=== PATIENT | male | born 1990 ===

== ENCOUNTER 2017-12-04 01:16 | Inpatient (IN) | payer MEDICAID ==
--- NOTE | 2017-12-04 01:58 | ED PDOC ---
HPI: Psych/Substance Abuse Time Seen by Provider: 12/04/17 01:18 Chief Complaint (Nursing): Psychiatric Evaluation Chief Complaint (Provider): Requesting psychiatric evaluation History Per: Patient Associated Symptoms: Depression. denies: Suicidal Thoughts, Suicidal Plan Additional Complaint(s): 27yo male, diagnosed with schizophrenia and bipolar disorder as an adolescent, recently discharged from [facility] ago, presents to ED requesting psychiatric evaluation. Patient states he has been noncompliant with his medications for the past 3 months and reports feeling depressed. He denies any suicidal or homicidal ideation, auditory or visual hallucinations. He has no other complaints. PMD: None provided Past Medical History Reviewed: Historical Data, Nursing Documentation, Vital Signs Vital Signs: Last Vital Signs Temp 98.0 F 12/04/17 01:28 Pulse 65 12/04/17 01:28 Resp 18 12/04/17 01:28 BP 131/62 12/04/17 01:28 Pulse Ox 99 12/04/17 01:28 - Medical History PMH: Bipolar Disorder, Schizophrenia - Surgical History Surgical History: No Surg Hx - Family History Family History: States: No Known Family Hx - Social History Current smoker - smoking cessation education provided: Yes Drugs: Cannabis - Home Medications Home Medications: Ambulatory Orders Medication Instructions Recorded Unobtainable 12/04/17 - Allergies Allergies/Adverse Reactions: Allergies Allergy/AdvReac Type Severity Reaction Status Date / Time fluphenazine [From Prolixin] Allergy dyskinesia Verified 12/04/17 01:28 haloperidol [From Haldol] Allergy SHORTNESS Verified 12/04/17 01:28 OF BREATH Review of Systems ROS Statement: Except As Marked, All Systems Reviewed And Found Negative Psych: Positive for: Depression. Negative for: Psychosis, Suicidal ideation Physical Exam - Reviewed Nursing Documentation Reviewed: Yes Vital Signs Reviewed: Yes - Physical Exam Appears: Positive for: Non-toxic, No Acute Distress Head Exam: Positive for: ATRAUMATIC, NORMAL INSPECTION, NORMOCEPHALIC Skin: Positive for: Normal Color Eye Exam: Positive for: Normal appearance Neck: Positive for: Normal, Supple Cardiovascular/Chest: Positive for: Regular Rate, Rhythm Respiratory: Positive for: Normal Breath Sounds. Negative for: Respiratory Distress Gastrointestinal/Abdominal: Positive for: Normal Exam, Soft. Negative for: Tenderness Back: Positive for: Normal Inspection Extremity: Positive for: Normal ROM. Negative for: Deformity Neurologic/Psych: Positive for: Alert, Oriented, Mood/Affect (flat) - Laboratory Results Result Diagrams: 12/04/17 02:55 12/04/17 02:55 - ECG ECG: Positive for: Interpreted By Me, Viewed By Me ECG Rhythm: Positive for: Sinus Bradycardia Rate: 58 (0238) O2 Sat by Pulse Oximetry: 99 (RA) Pulse Ox Interpretation: Normal Medical Decision Making Medical Decision Making: Impression: 27yo male with depression in setting of history of schizophrenia, and bipolar disorder Plan: -- Cogentin 1mg PO -- Risperdal 1mg PO -- Crisis evaluation Time: 213 Patient seen and evaluated by crisis team and patient to be admitted under Dr. Bowling for depression. Labs ordered. Time: 0406 Labs reviewed and show no clinically significant abnormalities. CXR as read by provider indicates no acute diseases. Patient is medically stable for a psychiatric admission Scribe Attestation: Documented by Paulette Blankenship, acting as a scribe for Sharad Almonte MD. Provider Scribe Attestation: All medical record entries made by the Scribe were at my direction and personally dictated by me. I have reviewed the chart and agree that the record accurately reflects my personal performance of the history, physical exam, medical decision making, and the department course for this patient. I have also personally directed, reviewed, and agree with the discharge instructions and disposition. Disposition - Clinical Impression Clinical Impression: Bipolar disorder - Disposition Disposition Time: 02:14 Condition: STABLE - Pt Status Changed To: Hospital Disposition Of: Inpatient - Admit Certification Admit to Inpatient:: After my assessment, the patient will require hospitalization for at least two midnights. This is because of the severity of symptoms shown, intensity of services needed, and/or the medical risk in this patient being treated as an outpatient. - POA Present On Arrival: None
[2017-12-04 03:02] LABS: BASO # 0.1 K/uL (0.0-0.2); BASO % 0.6 % (0.0-2.0); EOS # 0.1 K/uL (0.0-0.7); EOS % 1.4 % (0.0-4.0); HEMOGLOBIN 14.4 g/dL (12.0-18.0); LYMPH % 18.8 % (20.0-40.0); MEAN CELL VOLUME 87.3 fl (80.0-94.0); MEAN CORPUSCULAR HEMOGLOBIN 30.4 pg (27.0-31.0); MEAN CORPUSCULAR HGB CONC 34.8 g/dL (33.0-37.0); MEAN PLATELET VOLUME 9.3 fl (7.2-11.7); MONO # 1.1 K/uL (0.0-0.8); MONO % 9.9 % (0.0-10.0); NEUT # 7.4 K/uL (1.8-7.0); NEUT % 69.3 % (50.0-75.0); RBC 4.74 Mil/uL (4.40-5.90); RED CELL DISTRIBUTION WIDTH 13.3 % (11.5-14.5); SQUAMOUS EPITHIAL < 1 /hpf (0-5); URINE BILIRUBIN NEGATIVE (NEGATIVE); URINE BLOOD NEGATIVE (NEGATIVE); URINE CLARITY SLIGHTY-CLOUDY (Clear); URINE COLOR YELLOW (YELLOW); URINE GLUCOSE (UA) NEG (Normal); URINE LEUKOCYTE ESTERASE NEG Leu/uL (Negative); URINE PROTEIN NEGATIVE (NEGATIVE); WHITE BLOOD COUNT 10.7 K/uL (4.8-10.8)
[2017-12-04 03:19] LABS: BARBITURATES, UR NEGATIVE (NEGATIVE); BENZODIAZEPINES, UR NEGATIVE (NEGATIVE); OPIATES, UR NEGATIVE (NEGATIVE); PHENCYCLIDINE, UR NEGATIVE (NEGATIVE)
[2017-12-04 04:05] LABS: ALB/GLOB RATIO 1.4 (1.0-2.1); ALBUMIN 3.9 g/dL (3.5-5.0); ALT/SGPT 26 U/L (21-72); AST/SGOT 25 U/L (17-59); BLOOD UREA NITROGEN 15 mg/dl (9-20); CALCIUM 8.9 mg/dL (8.4-10.2); GFR AFRICAN-AMERICAN > 60; GFR NON-AFRICAN AMERICAN > 60
[2017-12-04 04:08] VITALS: O2SAT 99
[2017-12-04] MEDS ORDERED: Alum-Mag Hydrox-Simethicone Susp (30 mL) PO PRN (04:36)
[2017-12-04] MEDS ORDERED: Magnesium Hydroxide Susp 30 ml UD PO PRN (04:36)
[2017-12-04] MEDS ORDERED: DiphenhydrAMINE 50 mg/ml Inj IM PRN (04:36)
--- NOTE | 2017-12-04 04:44 | PCM.BM ---
<Gwyn Cavanaugh - Last Filed: 12/04/17 04:42> Treatment Plan Problems - Problems identified on initial assessmt Hopelessness/Helplessness Date Initiated: 12/04/17 Time Initiated: 04:42 Assessment reference: NA Status: Active Treatment assets and liabiliti Patient Assests: cooperative, self-reliant, ADL independent, physically healthy , negotiates basic needs, cognitively intact Patient Liabilities: live alone, financial problems, poor support system, substance abuse - Milieu Protocol Maintain good personal hygiene: every shift Encourage regular showers, every shift Remind patient to perform daily oral care, every shift Assist patient to perform ADL's Maintain personal safety: daily Educate patient to report safety concerns to staff, daily Monitor environment for contraband/sharps Medication safety: Monitor for expected outcome, potential side effects: daily, Assess barriers to learning: daily, Assess readiness for medication education: daily <Beverly Olvera - Last Filed: 12/04/17 09:43> - Diagnosis (1) Bipolar disorder Status: Chronic Interventions: Medication management, Individual and group therapy, Psychoeducation 12/04/17 09:44 <Kavin Barry - Last Filed: 12/05/17 12:06> Family Contact Family involvement: Famliy/SO not involved Family contact: Patient declines to allow family contact at present Family contact name: Pt denied. - Goals for Treatment Patient goals for treatment: Pt reported he would like time to rest and get his strength up. Pt was very concerned with medications making his drousy. Discharge/Continuing Care - Education Needs Education Needs: Patient Medication, Patient Diagnosis/Disease Process, Patient Coping Skills, Patient Community resources, Patient Aftercare Safety Plan - Discharge Discharge Criteria: Tolerates medication w/o severe side effects, Free of Suicidal thoughts, Free of paranoid thoughts, Free of agitation, Normal sleep pattern, Reduction of target symptoms Discharge to:: Halfway - Additional Comments 12/05/17 12:03 Pt reported he came to the hospital for "personal issues." Pt's psychiatric hx was discussed at length and pt reported he was hospitalized numerous times as a child and adult at [facility] for several months. Pt was fixated on his medications not making him drowsy, so Dr. Olvera recommended only giving pt his Risperdal at nighttime. - Treatment Team Participation Was Patient/Family/SO present at Treatment Team Meeting: Yes
--- NOTE | 2017-12-04 09:18 | RAD ---
HISTORY: admit COMPARISON: No prior. FINDINGS: LUNGS: No active pulmonary disease. PLEURA: No significant pleural effusion identified, no pneumothorax apparent. CARDIOVASCULAR: Normal. OSSEOUS STRUCTURES: No significant abnormalities. VISUALIZED UPPER ABDOMEN: Normal. OTHER FINDINGS: None. IMPRESSION: No active disease.
--- NOTE | 2017-12-04 09:44 | PCM.PSYCH ---
Initial Psychiatric Evaluation - Initial Psychiatric Evaluation Type of Admission: Voluntary Legal Status: Capacity Chief Complaint (in patient's own words): "I'm depressed." Patient's Reaction to Hospitalization: HPI: 27 yo male w/ self reported history of "bipolar disorder" vs "schizophrenia " BIB EMS after he went to the police department reporting that he was depressed and suicidal. Patient at this time is minimally cooperative with interview and unwilling to give details of his psychiatric history. He reports that he feels acutely depressed, with low energy, poor sleep/appetite. He denies anxiety, manic, racing thoughts, AH/VH/current SI/HI. He reports that the depression has been worsened by the recent of a cousin a few weeks ago. PPHx: Reports >50 psychiatric hospitalizations. Reports h/o suicide attempt at age 18 (attempted to jump off roof). Tx w/ Depakote, Cogentin and Risperdal in the past, not currently complaint with medications or outpatient tx. PMHx: Denies acute medical issues ALL: Fluphenazine, Haldol SHx: Homeless, from the [place], unemployed; denies drugs (but Utox +cannabis)/ denies etoh; smokes 1PPD (declined nicotine replacement) Current Medications: Active Medications Generic Name Dose Route Start Last Admin Trade Name Freq PRN Reason Stop Dose Admin Acetaminophen 650 mg 12/04/17 04:36 Tylenol 325mg Tab PO Q4 PRN Pain, moderate (4-7) Al Hydrox/Mg Hydrox/Simethicone 30 ml 12/04/17 04:36 Maalox Plus 30 Ml PO Q4 PRN Dyspepsia Benztropine Mesylate 0.5 mg 12/04/17 09:00 Cogentin PO Q12 KELLEE Diphenhydramine HCl 50 mg 12/04/17 04:36 Benadryl IM Q6 PRN Extrapyramidal S/S Unable PO Diphenhydramine HCl 50 mg 12/04/17 04:36 Benadryl PO Q6 PRN Extrapyramidal Symptoms Diphenhydramine HCl 50 mg 12/04/17 04:41 Benadryl PO HS PRN Sleep Lorazepam 2 mg 12/04/17 04:36 Ativan IM Q4 PRN Anxiety/Agitation,Unable PO Lorazepam 2 mg 12/04/17 04:36 Ativan PO Q4 PRN Anxiety/Agitation Magnesium Hydroxide 30 ml 12/04/17 04:36 Milk Of Magnesia PO HS PRN Constipation Risperidone 1 mg 12/04/17 09:00 Risperdal Tab PO Q12 KELLEE Past Psychiatric History - Past Psychiatric History Previous Treatment History: Inpatient Pertinent Medical Hx (Current Medical&Sleep Prob, Allergies): Allergies Allergy/AdvReac Type Severity Reaction Status Date / Time fluphenazine [From Prolixin] Allergy dyskinesia Verified 12/04/17 01:28 haloperidol [From Haldol] Allergy SHORTNESS Verified 12/04/17 01:28 OF BREATH Unobtainable 12/04/17 Review of Systems - Psychiatric Psychiatric: As Per HPI, Abnormal Sleep Pattern, Anxiety, Behavioral Changes, Change in Appetite, Depression, Difficulty Concentrating, Hopelessness, Mood Swings, Suicidal Ideation Mental Status Examination - Personal Presentation Personal Presentation: Looks stated age - Affect Affect: Constricted - Motor Activity Motor Activity: Calm - Reliability in Providing Information Reliability in Providing Information: Other (Poor due to being intentionally evasive) - Speech Speech: Organized, Coherent - Mood Mood: Depressed - Formal Thought Process Formal Thought Process: No Impairment - Hallucinations/Delusions Additional comments: No AH/VH/paranoia/delusions - Obsessions/Compulsions Obsessions: No Compulsions: No - Cognitive Functions Orientation: Person, Place, Situation, Time Sensorium: Alert Attention/Concentration: Attentive Judgement: Intact, as evidence by: Insight regarding need for hospitalization Memory: Recent intact, as evidence by: Ability to recall events of the day, Remote intact, as evidenced by: Abilit to recall sig. life events, Remote intact , as evidenced by: Ability to recall historical events - Risk Risk: Suicidal, Diminished functioning - Strength & Assets Inventory Strength & Assets Inventory: Cooperative - Limitations Limitations: Other (Homelessness, Poverty) DSM 5 DX - DSM 5 DSM 5 Diagnosis: Bipolar Disorder r/o Schizoaffective Disorder - Recommended/Plan of Treatment Treatment Recommendations and Plan of Treatment: Bipolar Disorder r/o Schizoaffective Disorder -Admit to psychiatry unit -Individual and group therapy -Restart Risperdal and Cogentin -Medicine consult -Psychoeducation -Disposition planning Projected ELOS: 5-7 days Discharge Plan and Discharge Criteria: Discharge when patient is psychiatrically stable - Smoking Cessation Smoking Cessation Initiated: No Reason for not providing: Patient declined
[2017-12-04] MEDS ORDERED: OLANZapine 5 mg Disintegrating Tab PO PRN (09:46)
--- NOTE | 2017-12-04 11:56 | CARD ---
APPROVED REPORT EKG Measurement Heart [id number] <Conclusion> Sinus bradycardia Otherwise normal ECG
--- NOTE | 2017-12-04 16:18 | CP.PCM.CON ---
History of Present Illness - History of Present Illness History of Present Illness: This is a 27 year old male with pmh of bipolar disorder vs schizophrenia with apparently multiple psychiatric admissions in the past. He is admitted to the inpatient psychiatric facility due to this. The patient denies any medical problems in the past and denies any surguries in the past. Patient denies chest pain, shortness of breath, fevers, chills, nausea, vomiting, diarrhea, headache. All of the patient's questions were answered at the bedside. Review of Systems - Review of Systems Review of Systems: A 12 point review of systems was conducted and found to be negative other than what was mentioned in the HPI. Past Patient History - Infectious Disease Hx of Infectious Diseases: None - Past Medical History & Family History Past Medical History?: No Past Family History: Reviewed and not pertinent - Past Social History Smoking Status: Light Smoker < 10 Cigarettes Daily Drugs: Cannabis - CARDIAC Hx Cardiac Disorders: No - PULMONARY Hx Respiratory Disorders: No - NEUROLOGICAL Hx Neurological Disorder: No - HEENT Hx HEENT Problems: No - RENAL Hx Chronic Kidney Disease: No - ENDOCRINE/METABOLIC Hx Endocrine Disorders: No - HEMATOLOGICAL/ONCOLOGICAL Hx Blood Disorders: No - INTEGUMENTARY Hx Dermatological Problems: No - MUSCULOSKELETAL/RHEUMATOLOGICAL Hx Musculoskeletal Disorders: No - GENITOURINARY/GYNECOLOGICAL Hx Genitourinary Disorders: No - PSYCHIATRIC Hx Bipolar Disorder: Yes Hx Depression: Yes Hx Schizophrenia: Yes Hx Substance Use: Yes (MARIJUANA) - ANESTHESIA Hx Anesthesia: No Meds Allergies/Adverse Reactions: Allergies Allergy/AdvReac Type Severity Reaction Status Date / Time fluphenazine [From Prolixin] Allergy dyskinesia Verified 12/04/17 01:28 haloperidol [From Haldol] Allergy SHORTNESS Verified 12/04/17 01:28 OF BREATH - Medications Medications: Current Medications Acetaminophen (Tylenol 325mg Tab) 650 mg PO Q4 PRN PRN Reason: Pain, moderate (4-7) Al Hydrox/Mg Hydrox/Simethicone (Maalox Plus 30 Ml) 30 ml PO Q4 PRN PRN Reason: Dyspepsia Benztropine Mesylate (Cogentin) 0.5 mg PO Q12 KELLEE Diphenhydramine HCl (Benadryl) 50 mg IM Q6 PRN PRN Reason: Extrapyramidal S/S Unable PO Diphenhydramine HCl (Benadryl) 50 mg PO Q6 PRN PRN Reason: Extrapyramidal Symptoms Diphenhydramine HCl (Benadryl) 50 mg PO HS PRN PRN Reason: Sleep Lorazepam (Ativan) 2 mg IM Q4 PRN PRN Reason: Anxiety/Agitation,Unable PO Lorazepam (Ativan) 2 mg PO Q4 PRN PRN Reason: Anxiety/Agitation Magnesium Hydroxide (Milk Of Magnesia) 30 ml PO HS PRN PRN Reason: Constipation Olanzapine (Zyprexa Inj) 10 mg IM Q12 PRN PRN Reason: Agitation Olanzapine (Zyprexa Zydis) 5 mg PO Q12 PRN PRN Reason: Agitation Risperidone (Risperdal Tab) 1 mg PO Q12 KELLEE Physical Exam - Additional Findings Additional findings: Physical exam: Constitutional- cooperative, awake, alert Head- NCAT, PERRL Eye- PERRL, EOMI ENT- normal exam, MMM. Neck- normal inspection, supple, no JVD Respiratory- CTAB, no wheezes rales rhonchi Cardiovascular- RRR, +S1, +S2 no MRG GI/Abdominal- normal bowel sounds, soft, no mass, no hsm Skin- warm, dry Extremities Exam- normal capillary refill, normal inspection Neurological Exam- alert, awake, oriented Psych- preoccupied, bizarre affect Results - Vital Signs Recent Vital Signs: Last Vital Signs Temp 97 F L 12/04/17 05:03 Pulse 65 12/04/17 05:03 Resp 18 12/04/17 05:03 BP 106/63 12/04/17 05:03 Pulse Ox 99 12/04/17 04:08 - Labs Result Diagrams: 12/04/17 02:55 12/04/17 02:55 Labs: Laboratory Results - last 24 hr 12/04/17 12/04/17 12/04/17 02:55 02:55 02:55 WBC 10.7 RBC 4.74 Hgb 14.4 Hct 41.4 MCV 87.3 MCH 30.4 MCHC 34.8 RDW 13.3 Plt Count 179 MPV 9.3 Neut % (Auto) 69.3 Lymph % (Auto) 18.8 L [place] % (Auto) 9.9 Eos % (Auto) 1.4 Baso % (Auto) 0.6 Neut # (Auto) 7.4 H Lymph # (Auto) 2.0 [place] # (Auto) 1.1 H Eos # (Auto) 0.1 Baso # (Auto) 0.1 Sodium 141 Potassium 3.9 Chloride 105 Carbon Dioxide 22 Anion Gap 18 BUN 15 Creatinine 0.8 Est GFR ( Amer) > 60 Est GFR (Non-Af Amer) > 60 Random Glucose 98 Calcium 8.9 Total Bilirubin 0.5 AST 25 ALT 26 Alkaline Phosphatase 70 Total Protein 6.7 Albumin 3.9 Globulin 2.8 Albumin/Globulin Ratio 1.4 Urine Color Urine Clarity Urine pH Ur Specific [place] Urine Protein Urine Glucose (UA) Urine Ketones Urine Blood Urine Nitrate Urine Bilirubin Urine Urobilinogen Ur Leukocyte Esterase Urine RBC (Auto) Urine Microscopic WBC Ur Squamous Epith Cells Urine Opiates Screen Negative Urine Methadone Screen Negative Ur Barbiturates Screen Negative Ur Phencyclidine Scrn Negative Ur Amphetamines Screen Negative U Benzodiazepines Scrn Negative U Oth Cocaine Metabols Negative U Cannabinoids Screen Positive H 12/04/17 02:55 WBC RBC Hgb Hct MCV MCH MCHC RDW Plt Count MPV Neut % (Auto) Lymph % (Auto) [place] % (Auto) Eos % (Auto) Baso % (Auto) Neut # (Auto) Lymph # (Auto) [place] # (Auto) Eos # (Auto) Baso # (Auto) Sodium Potassium Chloride Carbon Dioxide Anion Gap BUN Creatinine Est GFR ( Amer) Est GFR (Non-Af Amer) Random Glucose Calcium Total Bilirubin AST ALT Alkaline Phosphatase Total Protein Albumin Globulin Albumin/Globulin Ratio Urine Color Yellow Urine Clarity Slighty-cloudy Urine pH 6.0 Ur Specific Clarence 1.019 Urine Protein Negative Urine Glucose (UA) Neg Urine Ketones Negative Urine Blood Negative Urine Nitrate Negative Urine Bilirubin Negative Urine Urobilinogen 4.0 Ur Leukocyte Esterase Neg Urine RBC (Auto) 1 Urine Microscopic WBC 1 Ur Squamous Epith Cells < 1 Urine Opiates Screen Urine Methadone Screen Ur Barbiturates Screen Ur Phencyclidine Scrn Ur Amphetamines Screen U Benzodiazepines Scrn U Oth Cocaine Metabols U Cannabinoids Screen Assessment & Plan - Assessment and Plan (Free Text) Plan: ASSESSMENT/PLAN 27 yo male with pmh of bipolar disorder vs schizophrenia admitted to inpatient psychiatric unit 1) Bipolar disorder - Continue management as per psychiatry - No acute medical conditions to manage at this time - Thank you for the consultation 2) Cannabis abuse - chronic 3) Tobacco abuse - refused nicotine patch - chronic
--- NOTE | 2017-12-05 10:52 | PCM.PYCHPN ---
Psychiatric Progress Note - Psychiatric Progress Note Patient seen today, length of contact: Patient evaluated, case discussed with team, chart reviewed Patient Chief Complaint: "I'm depressed." Problems Identified/Issues Discussed: Patient reports that he continues to feel severely depressed. He reports low mood, low energy, low motivation. He denies acute AH/VH/paranoia, but seems suspicious of others. He refused blood work this morning. He denies acute SI/ HI. Medication Change: Yes (Increase Risperdal) Medical Record Reviewed: Yes Consults ordered or reviewed: Medicine consult Mental Status Examination - Cognitive Function Orientation: Person, Place, Situation, Time Memory: Intact Attention: WNL Concentration: WNL Association: WNL Fund of Knowledge: [facility] Decription of patient's judgement and insights: Poor I/J - Mood Mood: Depressed - Affect Affect: Constricted - Speech Speech: Appropriate - Formal Thought Process Formal Thought Process: No Impairment Psychotic Thoughts and Behaviors: Denies AH/VH/paranoia, but seems suspicious of others; r/o paranoia - Suicidal Ideation Suicidal Ideation: No - Homicidal Ideation Homicidal Ideation: No Goal/Treatment Plan - Goal/Treatment Plan Need for Continued Stay: Remain at risks for inpatient hospitalization, Severe depression anxiety, Discharge may exacerbated symptoms Progress Toward Problem(s) and Goals/Treatment Plan: Bipolar Disorder; r/o Schizoaffective Disorder -Individual and group therapy -Increase Risperdal and Cogentin -Medicine consult appreciated -Psychoeducation -Disposition planning Estimated Date of D/C: 12/10/17 - Smoking Cessation Smoking Cessation Initiated: No Reason for not providing: Patient declined
[2017-12-05 15:56] LABS: T4 8.36 ug/dl (5.5-11.0)
--- NOTE | 2017-12-06 18:47 | PCM.PYCHPN ---
Psychiatric Progress Note - Psychiatric Progress Note Patient seen today, length of contact: Patient evaluated, case discussed with team, chart reviewed Patient Chief Complaint: feeling stressed, depressed because new to area homeless concerned about domicile benefits Problems Identified/Issues Discussed: alteration in mood alteration in coping Medical Problems: per chart Diagnostic Results: per psychiatry per medicine per nursing per social insurance specialist per chart Medication Change: No Medical Record Reviewed: Yes Consults ordered or reviewed: pt seen hospitalist Mental Status Examination - Cognitive Function Orientation: Person, Place, Situation, Time Memory: Intact Attention: WNL Concentration: WNL Association: WNL Fund of Knowledge: [facility] Decription of patient's judgement and insights: impaired - Mood Mood: Depressed - Affect Affect: Constricted - Speech Speech: Appropriate - Formal Thought Process Formal Thought Process: No Impairment - Suicidal Ideation Suicidal Ideation: No - Homicidal Ideation Homicidal Ideation: No Goal/Treatment Plan - Goal/Treatment Plan Need for Continued Stay: Remain at risks for inpatient hospitalization, Severe depression anxiety, Discharge may exacerbated symptoms Progress Toward Problem(s) and Goals/Treatment Plan: inpt milieu adjust meds per status review with pt may discuss with team friday supportive counseling discharge planning in progress Estimated Date of D/C: 12/10/17 - Smoking Cessation Smoking Cessation Initiated: No Reason for not providing: pt defers
--- NOTE | 2017-12-07 14:25 | PCM.PYCHPN ---
Psychiatric Progress Note - Psychiatric Progress Note Patient seen today, length of contact: Patient evaluated, case discussed with team, chart reviewed Patient Chief Complaint: reports slept better, was somewhat irritable when attempting to assess "why are asking these questions, why are you trying to get into my history I told you I was okay". 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 Attempt was made to share with pt need benefit for obtaining history , responsibility of any provider to ask about notable abnormalities and that any injury one ask if there was any potential head inury" "that has nothing to do with psych". Attempt was to reflect that pt came to hospital for help and that he is important ot team, that hospital is place to seek care and help related to maximal betterment, attempted to reflect context of different if was staying in a place of domicile and or hotel". Pt stated " so why you asking me about how I slept". Placed to place in context of assessment. Pt later came up to nursing station and stated appearing to smile "are you happy I am fully awake". Later was noted to be up in unit asking about, lunch, asking for paper and pencil. Problems Identified/Issues Discussed: alteration in mood alteration in coping Medical Problems: per chart Diagnostic Results: per psychiatry per medicine per nursing per manager social work per chart DSM 5 Symptoms Update: mood and cognition Medication Change: No Medical Record Reviewed: Yes Consults ordered or reviewed: pt seen by hospitalist Mental Status Examination - Cognitive Function Orientation: Person, Place, Situation, Time Memory: Intact Attention: WNL Concentration: WNL Association: WNL Fund of Knowledge: WN Decription of patient's judgement and insights: impaired - Mood Mood: Depressed - Affect Affect: Constricted Additional comments: irritable at times - Speech Speech: Appropriate - Formal Thought Process Formal Thought Process: No Impairment - Suicidal Ideation Suicidal Ideation: No - Homicidal Ideation Homicidal Ideation: No Goal/Treatment Plan - Goal/Treatment Plan Need for Continued Stay: Remain at risks for inpatient hospitalization, Severe depression anxiety, Discharge may exacerbated symptoms Progress Toward Problem(s) and Goals/Treatment Plan: inpt milieu adjust meds per status review with pt may discuss with team friday supportive counseling psychoeducation referral dietary nutrition overweight asking for increased amounts of food discharge planning in progress Estimated Date of D/C: 12/10/17 - Smoking Cessation Smoking Cessation Initiated: No Reason for not providing: pt deferred
--- NOTE | 2017-12-08 09:18 | PCM.PYCHPN ---
Psychiatric Progress Note - Psychiatric Progress Note Patient seen today, length of contact: Patient evaluated, case discussed with team, chart reviewed Patient Chief Complaint: "I'm depressed." Problems Identified/Issues Discussed: No significant events over the weekend. Patient reports that he continues to feel depressed, but that his mood is starting to improve. He reports improved energy/sleep/appetite. Psychoeducation provided on the importance of compliance with treatment and medications. Psychoeducation provided on how cannabis can affect mental health. He denies acute SI/HI. Medication Change: No Medical Record Reviewed: Yes Consults ordered or reviewed: Medicine consult Mental Status Examination - Cognitive Function Orientation: Person, Place, Situation, Time Memory: Intact Attention: WNL Concentration: WNL Association: WNL Fund of Knowledge: [facility] Decription of patient's judgement and insights: Improving I/J - Mood Mood: Depressed - Affect Affect: Constricted - Speech Speech: Appropriate - Formal Thought Process Formal Thought Process: No Impairment Psychotic Thoughts and Behaviors: No AH/VH/paranoia/delusions - Suicidal Ideation Suicidal Ideation: No - Homicidal Ideation Homicidal Ideation: No Goal/Treatment Plan - Goal/Treatment Plan Need for Continued Stay: Remain at risks for inpatient hospitalization, Severe depression anxiety, Discharge may exacerbated symptoms Progress Toward Problem(s) and Goals/Treatment Plan: Bipolar Disorder; r/o Schizoaffective Disorder -Individual and group therapy -Continue Risperdal and Cogentin -Medicine consult appreciated -Psychoeducation -Disposition planning Estimated Date of D/C: 12/10/17
[2017-12-09 05:39] VITALS: RESP 19
--- NOTE | 2017-12-09 08:45 | PCM.PYCHPN ---
Psychiatric Progress Note - Psychiatric Progress Note Patient seen today, length of contact: Patient evaluated, case discussed with team, chart reviewed Patient Chief Complaint: "I'm okay." Problems Identified/Issues Discussed: No significant events overnight. Patient has been calm and cooperative. No incidents of violence, aggressive or threatening behavioral during admission. He reports that his mood is improving. He denies acute AH/VH/SI/HI. He reports improved energy/sleep/appetite. Psychoeducation provided on the importance of compliance with treatment and medications. Psychoeducation provided on how cannabis can affect mental health. No adverse effects to medications reported. Medication Change: No Medical Record Reviewed: Yes Consults ordered or reviewed: Medicine consult Mental Status Examination - Cognitive Function Orientation: Person, Place, Situation, Time Memory: Intact Attention: WNL Concentration: WNL Association: WNL Fund of Knowledge: WN Decription of patient's judgement and insights: Improving I/J - Mood Mood: Neutral - Affect Affect: Constricted - Speech Speech: Appropriate - Formal Thought Process Formal Thought Process: No Impairment Psychotic Thoughts and Behaviors: No AH/VH/paranoia/delusions - Suicidal Ideation Suicidal Ideation: No - Homicidal Ideation Homicidal Ideation: No Goal/Treatment Plan - Goal/Treatment Plan Need for Continued Stay: Severe depression anxiety Progress Toward Problem(s) and Goals/Treatment Plan: Bipolar Disorder; r/o Schizoaffective Disorder -Individual and group therapy -Continue Risperdal and Cogentin -Medicine consult appreciated -Psychoeducation -Disposition planning Estimated Date of D/C: 12/10/17
--- NOTE | 2017-12-10 08:57 | PCM.PYCHDC ---
Mental Status Examination - Mental Status Examination Orientation: Person, Place, Situation, Time Memory: Intact Mood: Neutral Affect: Broad Speech: Appropriate Attention: WNL Concentration: WNL Association: WNL Fund of Knowledge: WNL Formal Thought Process: No Impairment Description of patient's judgement and insight: Fair I/J Psychotic Thoughts and Behaviors: No AH/VH/paranoia/delusions Suicidal Ideation: No Current Homicidal Ideation?: No Discharge Summary - Discharge Note Reason for Hospitalization: HPI: 27 yo male w/ self reported history of "bipolar disorder" vs "schizophrenia " BIB EMS after he went to the police department reporting that he was depressed and suicidal. Patient at this time is minimally cooperative with interview and unwilling to give details of his psychiatric history. He reports that he feels acutely depressed, with low energy, poor sleep/appetite. He denies anxiety, manic, racing thoughts, AH/VH/current SI/HI. He reports that the depression has been worsened by the recent of a cousin a few weeks ago. PPHx: Reports >50 psychiatric hospitalizations. Reports h/o suicide attempt at age 18 (attempted to jump off roof). Tx w/ Depakote, Cogentin and Risperdal in the past, not currently complaint with medications or outpatient tx. PMHx: Denies acute medical issues ALL: Fluphenazine, Haldol SHx: Homeless, from the [place], unemployed; denies drugs (but Utox +cannabis)/ denies etoh; smokes 1PPD (declined nicotine replacement) Laboratory Data: Abnormal Lab Results 12/09/17 15:45 HIV-1 Ab Rapid Screen Non reactive Consultations:: List each consultation separately and include: 1. Reason for request. 2. Findings. 3. Follow-up Consultations: Medicine consult Summary of Hospital Course include:: 1. Description of specific treatment plan utilized for patients during their course of treatmen. 2. Summarize the time- course for resolution of acute symptoms and/or regressed behaviors. 3. Describe issues identified and worked on during hospitalization. 4. Describe medication utilized. 5. Describe medical problems identified and treated. 6. Reassessment of suicide risk Summary of Hospital Course: Patient was admitted to the psychiatry unit. Individual and group therapies and psychoeducation were provided. Patient was stabilized on Risperdal and Cogentin. He reports improvement in mood. No AH/VH/SI/HI. Patient has been calm and cooperative during the admission with no incidents of threatening behavior or aggression. He is psychiatrically stable at this time for discharge with outpatient follow-up. - Diagnosis (1) Bipolar disorder Current Visit: Yes Status: Chronic - Final Diagnosis (DSM 5) Condition upon Discharge: STABLE DSM 5: Bipolar Disorder Disposition: HOME/ ROUTINE Follow-up Treatment Plan: Bipolar Disorder; r/o Schizoaffective Disorder -Individual and group therapy -Continue Risperdal and Cogentin -Medicine consult appreciated -Psychoeducation -Patient is psychiatrically stable for discharge at this time Prescriptions/Medication Reconciliation: Benztropine [Cogentin] 1 mg PO HS #30 tab risperiDONE [RisperDAL Tab] 3 mg PO HS #30 tab - Smoking Cessation Smoking Cessation Medication prescribed: No Reason for not providing: Patient declined - Antipsychotic Medications Pt discharged on 2 or more routine antipsychotic medications: No
[2017-12-10 11:32] VITALS: BP 122/76; PULSE 74; TEMP 97.7
== END 2017-12-10 11:45 | disposition home or self-care (01) | DRG 885 ==
LOC: H.ER 01:16 → H.ERHOLD 02:32 → H.STEP 04:31
PROVIDERS: ADMIT Psychiatry & Neurology Psychiatry; ATTEND Psychiatry & Neurology Psychiatry
PROC: GZ51ZZZ Individual Psychotherapy, Behavioral (ICD-10-PCS; principal; 2017-12-04)
DX: F31.9 Bipolar disorder, unspecified (principal); Z68.41 Body mass index [BMI] 40.0-44.9, adult; F20.9 Schizophrenia, unspecified; Z59.0 Homelessness; Z91.14 Patient's other noncompliance with medication regimen; E66.3 Overweight; F12.10 Cannabis abuse, uncomplicated; F17.200 Nicotine dependence, unspecified, uncomplicated